=== PATIENT | female | born 1985 | race Caucasian/White ===

== ENCOUNTER 2020-12-30 07:01 | Emergency (ER) | payer OTHER ==
[~2020-12-30] VITALS: Ht 157.5 cm; Wt 61.2 kg
--- NOTE | 2020-12-30 07:15 | NUR ---
Dr. Bennett at bedside for MSE.
[2020-12-30] MEDS ORDERED: diphenhydrAMINE 50 MG/1 ML VIAL IV ONE (07:30)
[2020-12-30] MEDS ORDERED: ALBUTEROL SULFATE 2.5 MG/3 ML NEBU NEB ONE (07:30)
[2020-12-30] MEDS ORDERED: FAMOTIDINE. 20 MG/2 ML VIAL IV ONE ×2 (07:30→07:37)
[2020-12-30] MEDS ORDERED: methylPREDNISolone SOD SUCC 125 MG/2 ML VIAL IV ONE (07:30)
[2020-12-30] MEDS ORDERED: methylPREDNISolone SOD SUCC 125 MG/2 ML VIAL ONE (07:36)
[2020-12-30] MEDS ORDERED: diphenhydrAMINE 50 MG/1 ML VIAL ONE (07:36)
[2020-12-30] MEDS ORDERED: ALBUTEROL SULFATE 2.5 MG/3 ML NEBU ONE (07:39)
[2020-12-30] MEDS ORDERED: PRED50TA PO (07:48)
[2020-12-30] MEDS ORDERED: EPIN0.3P3 IJ (07:48)
--- NOTE | 2020-12-30 08:08 | NUR ---
HHN TX complete, pt resting with NAD noted.
--- NOTE | 2020-12-30 08:26 | NUR ---
received patient in shift report, no signs of acute distress, patient noted resting in bed on cellphone
--- NOTE | 2020-12-30 09:40 | NUR ---
Patient given discharge paperwork but states she wishes to rest a little bit more
--- NOTE | 2020-12-30 09:46 | NUR ---
Patient discharged to home in stable condition. Rx given, no signs of acute distress noted. Written and verbal after care instructions given. Patient verbalizes understanding of instructions. Stressed follow up or return to ER for worsening s/s.
[2020-12-30 09:53] VITALS: BP 124/73
== END 2020-12-30 09:45 | disposition home or self-care (01) ==
LOC: ER 07:02
DX: R42 Dizziness and giddiness (principal); T36.0X5A Adverse effect of penicillins, initial encounter; Y92.89 Other specified places as the place of occurrence of the external cause; F17.210 Nicotine dependence, cigarettes, uncomplicated; Z88.1 Allergy status to other antibiotic agents; J45.909 Unspecified asthma, uncomplicated; K02.9 Dental caries, unspecified; F15.11 Other stimulant abuse, in remission; K04.7 Periapical abscess without sinus
CPT/HCPCS: 94640; 96374; 96375; 99284; J1200; J2930; J3490; A4663

== ENCOUNTER 2020-12-30 13:08 | Emergency (ER) | payer OTHER ==
[~2020-12-30 13:08] MED LIST: EPIN0.3P3 IJ; PRED50TA PO
--- NOTE | 2020-12-30 13:40 | NUR ---
Attempted to triage pt. Pt was not found in ER waiting room or outside ER.
== END 2020-12-30 13:56 | disposition left against medical advice (07) ==
LOC: ER 13:08
DX: Z53.21 Procedure and treatment not carried out due to patient leaving prior to being seen by health care provider (principal)

== ENCOUNTER 2021-01-11 22:10 | Emergency (ER) | payer OTHER ==
[~2021-01-11] VITALS: Ht 157.5 cm; Wt 61.2 kg
--- NOTE | 2021-01-11 22:35 | NUR ---
Pt came in to ER with c/o SOB, A/O x4, no labored breathing. No audible wheezing. Steady gait.
--- NOTE | 2021-01-11 22:36 | NUR ---
Dr. Hollis at bedside, MSE in progress.
[2021-01-11] MEDS ORDERED: LORAZEPAM 0.5 MG TABLET PO ONE (22:45)
[2021-01-11] MEDS ORDERED: ASPIRIN 81 MG TAB.CHEW PO ONE (22:45)
[2021-01-11 23:00] LABS: HEMATOCRIT 40.5 % (31.2-41.9); MEAN CORPUSCULAR HEMOGLOBIN 30.8 uug (24.7-32.8); MEAN CORPUSCULAR VOLUME 93.1 fL (75.5-95.3); PLATELET COUNT (AUTO) 225 K/uL (179-408)
[2021-01-11] MEDS ORDERED: ALPRAZOLAM 0.25 MG TABLET PO ONE (23:00)
[2021-01-11 23:07] LABS: CREATININE 0.7 mg/dL (0.6-1.3); POTASSIUM 3.6 mmol/L (3.5-5.1)
[2021-01-11] MEDS ORDERED: ASPIRIN 81 MG TAB.CHEW ONE (23:13)
[2021-01-11] MEDS ORDERED: ALPRAZOLAM 0.5 MG TABLET ONE (23:13)
[2021-01-11 23:19] LABS: BILIRUBIN,DIRECT 0.1 mg/dL (0.0-0.2); BILIRUBIN,TOTAL 0.1 mg/dL (0.2-1.0); TOTAL PROTEIN, SERUM 7.8 g/dL (6.4-8.2)
[2021-01-11] MEDS ORDERED: ALPR0.5T PO (23:51)
--- NOTE | 2021-01-11 23:56 | NUR ---
Patient discharged to home in stable condition. A/O x4, no SOB or labored breathing. Afebrile. No c/o pain/discomfort. Written and verbal after care instructions given. Patient verbalizes understanding of instructions. Stressed follow up or return to ER for worsening s/s. Steady gait.
[2021-01-11 23:57] VITALS: BP 138/85
== END 2021-01-11 23:56 | disposition home or self-care (01) ==
LOC: ER 22:11
DX: R07.9 Chest pain, unspecified (principal); F17.210 Nicotine dependence, cigarettes, uncomplicated; J45.909 Unspecified asthma, uncomplicated; F41.9 Anxiety disorder, unspecified; Z79.899 Other long term (current) drug therapy
CPT/HCPCS: 36415; 70030-TC; 71045; 85025; 93005; A4663

== ENCOUNTER 2021-11-05 01:33 | Emergency (ER) | payer OTHER ==
[~2021-11-05] VITALS: Ht 152.4 cm; Wt 63.5 kg
[~2021-11-05 01:33] MED LIST changes: +ALPR0.5T PO
[2021-11-05] MEDS ORDERED: MUPI22OI2 TP (02:49)
[2021-11-05] MEDS ORDERED: SULF1TAB48 PO (02:50)
[2021-11-05] MEDS ORDERED: NEOMY/BACITRA/POLYMYXIN B OINT UD PACKET TP ONE (02:52)
[2021-11-05] MEDS ORDERED: SULFAMETH/TRIMETH 800/160 MG TABLET ONE (02:53)
[2021-11-05] MEDS: SULFAMETH/TRIMETH 800/160 MG TABLET PO ONE (02:55)
[2021-11-05] MEDS: NEOMY/BACITRA/POLYMYXIN B OINT UD PACKET TP ONE (02:56)
[2021-11-05] MEDS: MUPIROCIN 2% OINT 22 GM TUBE TP ONE (02:57)
--- NOTE | 2021-11-05 03:23 | NUR ---
Patient verba of needs and responds appropriately. Plan of care discussed and discharge instruction signed.
[2021-11-05 03:26] VITALS: BP 123/81
[2021-11-05] MEDS ORDERED: ALBU8.5H8 INH (03:43)
== END 2021-11-05 03:27 | disposition home or self-care (01) ==
LOC: ER 01:38
DX: J20.8 Acute bronchitis due to other specified organisms (principal); Z20.822 Contact with and (suspected) exposure to COVID-19; Z87.891 Personal history of nicotine dependence; Z88.1 Allergy status to other antibiotic agents; Z88.0 Allergy status to penicillin; J45.909 Unspecified asthma, uncomplicated; L03.90 Cellulitis, unspecified
CPT/HCPCS: A4663

== ENCOUNTER 2022-02-03 19:47 | Emergency (ER) | payer OTHER ==
[~2022-02-03] VITALS: Ht 152.4 cm; Wt 65.8 kg
[~2022-02-03 19:47] MED LIST changes: +ALBU8.5H8 INH; +MUPI22OI2 TP; +SULF1TAB48 PO
--- NOTE | 2022-02-03 20:07 | NUR ---
pt in room 3 states she tested positive for covid 2 days ago, pt presents to the er today for cough congestion runny nose. Dr. Seay in for MSE.
[2022-02-03] MEDS ORDERED: LORA0.5T48 PO (20:32)
--- NOTE | 2022-02-03 20:37 | NUR ---
Patient discharged to home in stable condition. Written and verbal after care instructions given. Patient verbalizes understanding of instructions. Stressed follow up or return to ER for worsening s/s.
[2022-02-03] MEDS ORDERED: IBUP-1955 PO ×2 (20:57→22:21)
[2022-02-03] MEDS ORDERED: LORA-258 PO (22:21)
== END 2022-02-03 20:37 | disposition home or self-care (01) ==
LOC: ER 19:47
DX: U07.1 COVID-19 (principal); F41.9 Anxiety disorder, unspecified; J45.909 Unspecified asthma, uncomplicated; Z28.310 Unvaccinated for COVID-19; Z87.891 Personal history of nicotine dependence; Z88.1 Allergy status to other antibiotic agents; Z88.0 Allergy status to penicillin
CPT/HCPCS: 71045; A4663

== ENCOUNTER 2022-03-17 02:56 | Emergency (ER) | payer OTHER ==
[~2022-03-17] VITALS: Ht 152.4 cm; Wt 63.5 kg
[~2022-03-17 02:56] MED LIST changes: +IBUP-1955 PO; +LORA-258 PO; +LORA0.5T48 PO
--- NOTE | 2022-03-17 03:20 | NUR ---
Dr. Simms at bedside for MSE.
[2022-03-17] MEDS ORDERED: SULF1TAB48 PO (03:27)
[2022-03-17] MEDS ORDERED: MUPI22OI2 TP (03:27)
[2022-03-17] MEDS ORDERED: SULFAMETH/TRIMETH 800/160 MG TABLET PO ONE (03:30)
[2022-03-17] MEDS ORDERED: SULFAMETH/TRIMETH 800/160 MG TABLET ONE (03:32)
[2022-03-17 03:35] VITALS: BP 127/91
--- NOTE | 2022-03-17 03:35 | NUR ---
Patient discharged to home in stable condition. Written and verbal after care instructions given. Patient verbalizes understanding of instructions. Stressed follow up or return to ER for worsening s/s. Patient out of ER with steady gait, no acute signs of distress, VSS, all belongings taken.
== END 2022-03-17 03:35 | disposition home or self-care (01) ==
LOC: ER 02:58
DX: L97.921 Non-pressure chronic ulcer of unspecified part of left lower leg limited to breakdown of skin (principal); L08.9 Local infection of the skin and subcutaneous tissue, unspecified; L98.499 Non-pressure chronic ulcer of skin of other sites with unspecified severity; E03.9 Hypothyroidism, unspecified; J45.909 Unspecified asthma, uncomplicated; Z88.0 Allergy status to penicillin; F15.10 Other stimulant abuse, uncomplicated; F11.10 Opioid abuse, uncomplicated; Z88.1 Allergy status to other antibiotic agents; F41.9 Anxiety disorder, unspecified; Z79.899 Other long term (current) drug therapy; R25.2 Cramp and spasm
CPT/HCPCS: A4663

== ENCOUNTER 2022-10-27 14:31 | Emergency (ER) | payer OTHER ==
[~2022-10-27] VITALS: Ht 152.4 cm; Wt 68.0 kg
[2022-10-27] MEDS ORDERED: METH-817 PO (14:49)
[2022-10-27] MEDS ORDERED: LORA10CA PO (14:49)
[2022-10-27] MEDS ORDERED: LAMO150T2 PO (14:49)
[2022-10-27 15:19] LABS: HEMATOCRIT 37.3 % (31.2-41.9); MEAN CORPUSCULAR HEMOGLOBIN 32.1 uug (24.7-32.8); MEAN CORPUSCULAR VOLUME 92.9 fL (75.5-95.3); PLATELET COUNT (AUTO) 244 K/uL (179-408)
[2022-10-27 15:25] LABS: *BILIRUBIN,URIN NEGATIVE (NEGATIVE); *BLOOD, URINE 3+ (NEGATIVE); *CLARITY,URINE SLIGHTLY CLOUDY (CLEAR); *KETONES,URINE NEGATIVE (NEGATIVE); *UROBILINOGEN,URINE 0.2 E.U./dl (NORMAL); LEUKOCYTE ESTERASE ,URINE NEGATIVE (NEGATIVE); NITRITE, URINE NEGATIVE (NEGATIVE); UGLUCOSE NEGATIVE (NEGATIVE)
[2022-10-27 15:26] LABS: *COLOR,URINE AMBER (YELLOW)
[2022-10-27 15:33] LABS: *URINE HCG, QUAL NEGATIVE (NEGATIVE)
[2022-10-27 15:36] LABS: CARBON DIOXIDE 28 mmol/L (21-32); CHLORIDE 104 mmol/L (98-107); CREATININE 0.8 mg/dL (0.6-1.3); GLUCOSE 99 mg/dL (74-106); POTASSIUM 3.9 mmol/L (3.5-5.1); UREA NITROGEN, BLOOD 15 mg/dL (7-18)
[2022-10-27 15:43] LABS: ALANINE AMINOTRANSFERASE 27 U/L (14-59); ALKALINE PHOSPHATASE 61 U/L (50-136); ASPARTATE AMINOTRANSFERASE 18 U/L (15-37); BILIRUBIN,DIRECT < 0.1 mg/dL (0.0-0.2); BILIRUBIN,TOTAL 0.1 mg/dL (0.2-1.0); TOTAL PROTEIN, SERUM 7.8 g/dL (6.4-8.2)
[2022-10-27 15:59] LABS: BACTERIA,URINE FEW /HPF (NONE SEEN); RBC,URINE 50-80 /HPF (0-3); SQUAMOUS EPITHELIAL CELL,UR FEW /HPF (NONE SEEN); WBC,URINE 0-3 /HPF (0-3)
== END 2022-10-27 17:01 | disposition home or self-care (01) ==
LOC: ER 14:55
DX: N93.9 Abnormal uterine and vaginal bleeding, unspecified (principal); D25.9 Leiomyoma of uterus, unspecified; F41.9 Anxiety disorder, unspecified; E03.9 Hypothyroidism, unspecified; R42 Dizziness and giddiness; J45.909 Unspecified asthma, uncomplicated; Z88.0 Allergy status to penicillin; Z88.1 Allergy status to other antibiotic agents; Z79.1 Long term (current) use of non-steroidal anti-inflammatories (NSAID); Z79.899 Other long term (current) drug therapy
CPT/HCPCS: 36415; 76856; 84443; 84484; 84703; 85025; 85730; 93005; A4663

== ENCOUNTER 2022-12-23 21:57 | Emergency (ER) | payer OTHER ==
[~2022-12-23] VITALS: Ht 152.4 cm; Wt 70.3 kg
[~2022-12-23 21:57] MED LIST changes: -ALPR0.5T PO; +LAMO150T2 PO; -LORA-258 PO; -LORA0.5T48 PO; +LORA10CA PO; +METH-817 PO; -MUPI22OI2 TP; -PRED50TA PO; -SULF1TAB48 PO
--- NOTE | 2022-12-23 22:15 | NUR ---
Dr Hollis into eval patient.
[2022-12-23] MEDS ORDERED: predniSONE 20 MG TABLET PO ONE (23:15)
[2022-12-23] MEDS ORDERED: LIDOCAINE VISCUS 2% 15 ML UDC MM ONE (23:15)
[2022-12-23] MEDS ORDERED: DICYCLOMINE HCL LIQ 10 MG/5 ML UDC PO ONE (23:15)
[2022-12-23] MEDS ORDERED: MAG HYDROX/AL HYDROX/SIMETH 30 ML LIQUID UDC PO ONE (23:15)
[2022-12-23] MEDS ORDERED: DICYCLOMINE HCL LIQ 10 MG/5 ML UDC ONE (23:16)
[2022-12-23] MEDS ORDERED: MAG HYDROX/AL HYDROX/SIMETH 30 ML LIQUID UDC ONE (23:17)
[2022-12-23] MEDS ORDERED: predniSONE 20 MG TABLET ONE (23:17)
[2022-12-23] MEDS ORDERED: LIDOCAINE VISCUS 2% 15 ML UDC ONE (23:17)
[2022-12-23] MEDS ORDERED: ALBU8.5H8 IH (23:25)
[2022-12-23] MEDS ORDERED: PRED20TA PO (23:25)
[2022-12-23] MEDS ORDERED: PANT20TA2 PO (23:25)
[2022-12-23] MEDS ORDERED: PANTOPRAZOLE SODIUM 40 MG TABLET.DR PO ONE ×2 (23:27→23:30)
[2022-12-23 23:33] VITALS: BP 112/77
== END 2022-12-23 23:33 | disposition home or self-care (01) ==
LOC: ER 21:57
DX: J20.8 Acute bronchitis due to other specified organisms (principal); B97.89 Other viral agents as the cause of diseases classified elsewhere; J45.909 Unspecified asthma, uncomplicated; R12 Heartburn; E03.9 Hypothyroidism, unspecified; Z88.0 Allergy status to penicillin; Z88.1 Allergy status to other antibiotic agents; Z79.1 Long term (current) use of non-steroidal anti-inflammatories (NSAID); Z79.899 Other long term (current) drug therapy; Z20.822 Contact with and (suspected) exposure to COVID-19
CPT/HCPCS: 99285; 71045; 87426; 87804 ×2; 93005; J7512; A4663

== ENCOUNTER 2022-12-28 22:42 | Emergency (ER) | payer OTHER ==
[~2022-12-28] VITALS: Ht 152.4 cm; Wt 68.0 kg
[~2022-12-28 22:42] MED LIST changes: +ALBU8.5H8 IH; +PANT20TA2 PO; +PRED20TA PO
--- NOTE | 2022-12-28 23:05 | NUR ---
Dr. Hollis evaluated patient at bedside. MSE in progress.
[2022-12-28] MEDS ORDERED: BUPR1FIL3 SL ×3 (23:11→23:19)
[2022-12-28] MEDS ORDERED: DIAZEPAM 2 MG TABLET PO ONE (23:15)
[2022-12-28] MEDS ORDERED: BUPRENORPHINE HCL 2 MG TAB.SUBL SL ONE ×3 (23:15→23:30)
[2022-12-28] MEDS ORDERED: DIAZEPAM 2 MG TABLET ONE (23:16)
--- NOTE | 2022-12-28 23:37 | NUR ---
Patient resting comfortably in bed, no signs of distress noted.
--- NOTE | 2022-12-29 00:12 | NUR ---
Patient resting comfortably in bed, no signs of distress noted. Patient's partner at bedside.
--- NOTE | 2022-12-29 00:23 | NUR ---
Patient ambulated to the bathroom indepedently. Steady gait, no signs of distress noted.
[2022-12-29 00:25] VITALS: BP 115/65
== END 2022-12-29 00:27 | disposition home or self-care (01) ==
LOC: ER 22:42
DX: F11.23 Opioid dependence with withdrawal (principal); F41.9 Anxiety disorder, unspecified; J45.909 Unspecified asthma, uncomplicated; E03.9 Hypothyroidism, unspecified; Z88.0 Allergy status to penicillin; Z88.1 Allergy status to other antibiotic agents; Z79.1 Long term (current) use of non-steroidal anti-inflammatories (NSAID); Z79.899 Other long term (current) drug therapy
CPT/HCPCS: A4663

== ENCOUNTER 2023-01-04 15:34 | Emergency (ER) | payer OTHER ==
[~2023-01-04] VITALS: Ht 152.4 cm; Wt 66.7 kg
[~2023-01-04 15:34] MED LIST changes: +BUPR1FIL3 SL
--- NOTE | 2023-01-04 16:07 | NUR ---
1st contact with patient: AOx4, respiration:easy, unlabored, even and symmetrical, moving all extremities, skin warm and dry, for possible transfer to outside hospital for her speech related issue, opiate abuse-related issues and anxiety issues. Patient verbally reported, " I have shakiness and possible stroke." Patient was seen ambulating to the bathroom with steady gait to provide urine specimen.
[2023-01-04 16:16] LABS: HEMATOCRIT 35.8 % (31.2-41.9); MEAN CORPUSCULAR HEMOGLOBIN 31.4 uug (24.7-32.8); MEAN CORPUSCULAR VOLUME 91.9 fL (75.5-95.3); PLATELET COUNT (AUTO) 212 K/uL (179-408)
--- NOTE | 2023-01-04 16:26 | NUR ---
"Plan to admit" per Dr Luu. ER registration/admitting staff Mulu was notified.
[2023-01-04 16:30] LABS: ALANINE AMINOTRANSFERASE 22 U/L (14-59); ALKALINE PHOSPHATASE 59 U/L (50-136); ASPARTATE AMINOTRANSFERASE 6 U/L (15-37); BILIRUBIN,TOTAL 0.3 mg/dL (0.2-1.0); CARBON DIOXIDE 28 mmol/L (21-32); CHLORIDE 104 mmol/L (98-107); CREATININE 0.7 mg/dL (0.6-1.3); GLUCOSE 110 mg/dL (74-106); POTASSIUM 3.6 mmol/L (3.5-5.1); TOTAL PROTEIN, SERUM 7.2 g/dL (6.4-8.2); UREA NITROGEN, BLOOD 11 mg/dL (7-18)
[2023-01-04 16:33] LABS: *URINE HCG, QUAL NEG (NEGATIVE)
[2023-01-04 16:39] LABS: *AMPHETAMINE, URINE NEGATIVE (NEGATIVE); *CANNABINOID, URINE NEGATIVE (NEGATIVE); *COCCAINE, URINE NEGATIVE (NEGATIVE); *PHENCYCLIDINE SCREEN,URINE NEGATIVE (NEGATIVE)
--- NOTE | 2023-01-04 17:28 | NUR ---
Patient is resting comfortably on gurney with eyes closed, no body tremors or "shakiness" seen, for CT scan at this time.
--- NOTE | 2023-01-04 17:52 | NUR ---
CT scan is done, NAD, no acute change in condition, pending results at this time.
--- NOTE | 2023-01-04 18:35 | NUR ---
Patient is intermittently tearful with her male visitor at bedside, pending results and disposition.
--- NOTE | 2023-01-04 18:56 | NUR ---
Patient is heard speaking to her visitor with clearer speech but at times, still mildly tearful.
[2023-01-04 19:07] LABS: MAGNESIUM 1.7 mg/dL (1.8-2.4)
--- NOTE | 2023-01-04 19:40 | NUR ---
Magali donnelly in EDM - 01/04/23 at 1943 by ZOILA Patient is still for insurance authorization for transfer to a decapitated outside hospital ([facility]) versus admission in our hospital.No acute change in patient's condition seen, nursing SBAR given to REHAN Hayden.
--- NOTE | 2023-01-04 19:43 | NUR ---
Patient is still waiting for insurance authorization for: possible transfer to a decapitated outside hospital (e.g. [facility]) versus admission in our hospital.No acute change in patient's condition seen, nursing SBAR given to REHAN Hayden.
--- NOTE | 2023-01-04 20:12 | NUR ---
Dr. Simms speaking with Dr. Humphreys.
[2023-01-04] MEDS ORDERED: CYANOCOBALAMIN 1000 MCG/ML VIAL IM ONE (20:15)
[2023-01-04] MEDS ORDERED: CYANOCOBALAMIN 1000 MCG/ML VIAL ONE (20:40)
[2023-01-04] MEDS ORDERED: MECO10006 IM (21:05)
[2023-01-04] MEDS ORDERED: SYRI-29 MC (21:05)
--- NOTE | 2023-01-04 21:05 | NUR ---
Pt care continue as she stable and been discharged to home with all discharged instructions given with family at bedside .
[2023-01-04 21:08] VITALS: BP 132/72
== END 2023-01-04 21:29 | disposition home or self-care (01) ==
LOC: ER 15:34
DX: R47.01 Aphasia (principal); F41.9 Anxiety disorder, unspecified; F11.10 Opioid abuse, uncomplicated; J45.909 Unspecified asthma, uncomplicated; E03.9 Hypothyroidism, unspecified; F15.10 Other stimulant abuse, uncomplicated; Z88.0 Allergy status to penicillin; Z88.1 Allergy status to other antibiotic agents; Z79.899 Other long term (current) drug therapy; Z79.1 Long term (current) use of non-steroidal anti-inflammatories (NSAID); Z20.822 Contact with and (suspected) exposure to COVID-19
CPT/HCPCS: 80053; 82607; 84703; 83735; 85025; 87426; 36415; 70450; 99285; 96372; 80320; 80307; J3420; A4663; G0480

== ENCOUNTER 2023-01-29 05:32 | Emergency (ER) | payer OTHER ==
[~2023-01-29] VITALS: Ht 149.9 cm; Wt 62.6 kg
[~2023-01-29 05:32] MED LIST changes: -ALBU8.5H8 IH; -ALBU8.5H8 INH; +ALPR0.5T PO; -IBUP-1955 PO; -LAMO150T2 PO; +MECO10006 IM; -METH-817 PO; +NITR100C11 PO; -PRED20TA PO; +SYRI-29 MC
--- NOTE | 2023-01-29 06:10 | NUR ---
Pt. escorted to Rm2[facility] by triage nurse. AAOx4. States she is here only for medication refill. Denies any pain/discomfort. Awaiting eval from .
[2023-01-29] MEDS ORDERED: BUPR1FIL3 SL (06:34)
--- NOTE | 2023-01-29 06:38 | NUR ---
Pt. seen by MD and electronic prescription sent to pharmacy. Pt. discharged with no further requests. Will f/u with doctor/clinic at upcoming appointment.
[2023-01-29 06:46] VITALS: BP 95/70; TEMP 98.7; O2SAT 97
== END 2023-01-29 06:40 | disposition home or self-care (01) ==
LOC: ER 05:35
DX: F11.23 Opioid dependence with withdrawal (principal); E03.9 Hypothyroidism, unspecified; Z76.0 Encounter for issue of repeat prescription; Z88.0 Allergy status to penicillin; Z88.1 Allergy status to other antibiotic agents; Z79.899 Other long term (current) drug therapy
CPT/HCPCS: A4663

== ENCOUNTER 2023-08-16 00:40 | Emergency (ER) | payer OTHER ==
[~2023-08-16] VITALS: Ht 149.9 cm; Wt 63.5 kg
[2023-08-16] MEDS ORDERED: BUPR1FIL3 SL ×2 (01:19→01:22)
[2023-08-16] MEDS ORDERED: FLUT1DIS28 INH (01:19)
[2023-08-16 01:31] VITALS: BP 116/85; TEMP 98.5; O2SAT 99
== END 2023-08-16 01:32 | disposition home or self-care (01) ==
LOC: ER 00:48
DX: J45.909 Unspecified asthma, uncomplicated (principal); Z76.0 Encounter for issue of repeat prescription; F11.20 Opioid dependence, uncomplicated; E03.9 Hypothyroidism, unspecified; Z60.2 Problems related to living alone; Z79.899 Other long term (current) drug therapy; Z88.0 Allergy status to penicillin; Z88.1 Allergy status to other antibiotic agents
CPT/HCPCS: A4606; A4663

== ENCOUNTER 2023-09-21 20:36 | Emergency (ER) | payer OTHER ==
[~2023-09-21] VITALS: Ht 149.9 cm; Wt 61.2 kg
[~2023-09-21 20:36] MED LIST changes: +FLUT1DIS28 INH
[2023-09-21 21:33] LABS: BASOPHILS % (AUTO) 0.5 % (0.0-2.0); EOSINOPHILS # (AUTO) 0.1 K/uL (0.0-0.7); EOSINOPHILS % (AUTO) 0.7 % (0.0-7.0); HEMATOCRIT 39.6 % (31.2-41.9); LYMPHOCYTES # (AUTO) 2.1 K/uL (0.8-4.8); LYMPHOCYTES % (AUTO) 28.1 % (20.5-51.5); MEAN CORPUSCULAR HEMOGLOBIN 32.4 uug (24.7-32.8); MEAN CORPUSCULAR HGB CONC 36 g/dL (32.3-35.6); MEAN CORPUSCULAR VOLUME 91.5 fL (75.5-95.3); MONOCYTES # (AUTO) 0.4 K/uL (0.1-1.30); MONOCYTES % (AUTO) 5.5 % (0.0-11.0); NEUTROPHILS # (AUTO) 4.8 K/uL (1.8-8.9); NEUTROPHILS % (AUTO) 65.2 % (38.5-71.5); PLATELET COUNT (AUTO) 211 K/uL (179-408); RED BLOOD CELL COUNT(AUTO) 4.33 MIL/uL (3.63-4.92); RED CELL DISTRIBUTION WIDTH 13.1 % (12.3-17.7); WHITE BLOOD COUNT (AUTO) 7.3 K/uL (3.8-11.8)
[2023-09-21 21:34] LABS: DIFFERENTIAL COMMENT 1
[2023-09-21 21:42] LABS: CALCIUM 9.2 mg/dL (8.5-10.1); CARBON DIOXIDE 28 mmol/L (21-32); CHLORIDE 103 mmol/L (98-107); CREATININE 0.7 mg/dL (0.6-1.3); GLUCOSE 94 mg/dL (74-106); POTASSIUM 3.4 mmol/L (3.5-5.1); SODIUM SERUM 139 mmol/L (136-145); UREA NITROGEN, BLOOD 11 mg/dL (7-18)
[2023-09-21 21:55] LABS: ALANINE AMINOTRANSFERASE 16 U/L (14-59); ALBUMIN 3.7 g/dL (3.4-5.0); ALKALINE PHOSPHATASE 61 U/L (50-136); ASPARTATE AMINOTRANSFERASE 8 U/L (15-37); BILIRUBIN,TOTAL 0.2 mg/dL (0.2-1.0); NT-PRO BNP 44 pg/mL (0-125); TOTAL PROTEIN, SERUM 7.8 g/dL (6.4-8.2)
[2023-09-21] MEDS ORDERED: ALPRAZOLAM 0.5 MG TABLET ONE (21:55)
[2023-09-21] MEDS ORDERED: ASPIRIN 81 MG TAB.CHEW ONE (21:55)
[2023-09-21 21:56] LABS: BILIRUBIN,DIRECT < 0.1 mg/dL (0.0-0.2)
[2023-09-21] MEDS: ALPRAZOLAM 0.25 MG TABLET PO ONE (21:59)
[2023-09-21] MEDS: ASPIRIN 81 MG TAB.CHEW PO ONE (21:59)
[2023-09-21] MEDS ORDERED: ALPR0.25 PO (22:28)
[2023-09-21 23:30] VITALS: BP 109/68; TEMP 98.2; O2SAT 99
== END 2023-09-21 22:58 | disposition home or self-care (01) ==
LOC: ER 20:37
DX: R07.89 Other chest pain (principal); F41.9 Anxiety disorder, unspecified; J45.909 Unspecified asthma, uncomplicated; E03.9 Hypothyroidism, unspecified; F17.210 Nicotine dependence, cigarettes, uncomplicated; Z98.890 Other specified postprocedural states; Z79.899 Other long term (current) drug therapy; Z60.2 Problems related to living alone; Z88.0 Allergy status to penicillin; Z88.5 Allergy status to narcotic agent
CPT/HCPCS: 36415; 71045; 84484; 85025; 93005; A4606; A4663

== ENCOUNTER 2023-09-24 01:36 | Emergency (ER) | payer OTHER ==
[~2023-09-24] VITALS: Ht 149.9 cm; Wt 61.2 kg
[~2023-09-24 01:36] MED LIST changes: +ALPR0.25 PO
[2023-09-24] MEDS ORDERED: BUPR1TAB45 SL (02:33)
[2023-09-24 02:49] VITALS: BP 120/78; TEMP 98; O2SAT 98
[2023-09-28] MEDS ORDERED: DOXY100C5 PO (17:24)
[2023-09-28] MEDS ORDERED: METR500T PO (17:24)
[2023-09-28] MEDS ORDERED: FLUC200T8 PO (18:38)
[2023-09-28] MEDS ORDERED: NITR100C6 PO (19:29)
== END 2023-09-24 02:50 | disposition home or self-care (01) ==
LOC: ER 01:39
DX: F11.20 Opioid dependence, uncomplicated (principal); Z76.0 Encounter for issue of repeat prescription; J45.909 Unspecified asthma, uncomplicated; E03.9 Hypothyroidism, unspecified; F17.210 Nicotine dependence, cigarettes, uncomplicated; Z98.890 Other specified postprocedural states; Z79.899 Other long term (current) drug therapy; Z88.0 Allergy status to penicillin; Z88.1 Allergy status to other antibiotic agents
CPT/HCPCS: A4606; A4663

== ENCOUNTER 2023-11-27 20:39 | Emergency (ER) | payer OTHER ==
[~2023-11-27] VITALS: Ht 149.9 cm; Wt 63.2 kg
[~2023-11-27 20:39] MED LIST changes: -ALPR0.5T PO; -BUPR1FIL3 SL; +BUPR1TAB45 SL; +DOXY100C5 PO; +FLUC200T8 PO; -LORA10CA PO; -MECO10006 IM; +METR500T PO; -NITR100C11 PO; +NITR100C6 PO; -PANT20TA2 PO; -SYRI-29 MC
[2023-11-27 20:43] VITALS: O2SAT 99
[2023-11-27 21:28] LABS: BASOPHILS % (AUTO) 0.3 % (0.0-2.0); EOSINOPHILS # (AUTO) 0.2 K/uL (0.0-0.7); EOSINOPHILS % (AUTO) 3.3 % (0.0-7.0); HEMATOCRIT 39.1 % (31.2-41.9); HEMOGLOBIN 13.7 g/dL (10.9-14.3); LYMPHOCYTES # (AUTO) 1.3 K/uL (0.8-4.8); LYMPHOCYTES % (AUTO) 26.5 % (20.5-51.5); MEAN CORPUSCULAR HEMOGLOBIN 32.1 uug (24.7-32.8); MEAN CORPUSCULAR HGB CONC 35 g/dL (32.3-35.6); MEAN CORPUSCULAR VOLUME 91.5 fL (75.5-95.3); MONOCYTES # (AUTO) 0.2 K/uL (0.1-1.30); MONOCYTES % (AUTO) 4.6 % (0.0-11.0); NEUTROPHILS # (AUTO) 3.3 K/uL (1.8-8.9); NEUTROPHILS % (AUTO) 65.3 % (38.5-71.5); PLATELET COUNT (AUTO) 256 K/uL (179-408); RED BLOOD CELL COUNT(AUTO) 4.28 MIL/uL (3.63-4.92); RED CELL DISTRIBUTION WIDTH 12.6 % (12.3-17.7)
[2023-11-27 21:44] LABS: DIFFERENTIAL COMMENT 1
[2023-11-27] MEDS ORDERED: LORAZEPAM 1 MG TABLET ONE (21:46)
[2023-11-27 21:50] LABS: CARBON DIOXIDE 31 mmol/L (21-32); CHLORIDE 105 mmol/L (98-107); CREATININE 0.7 mg/dL (0.6-1.3); GLUCOSE 106 mg/dL (74-106); POTASSIUM 3.9 mmol/L (3.5-5.1); SODIUM SERUM 143 mmol/L (136-145); UREA NITROGEN, BLOOD 12 mg/dL (7-18)
[2023-11-27] MEDS: LORAZEPAM 0.5 MG TABLET PO ONE (21:50)
[2023-11-27 21:53] LABS: ETHANOL < 3 MG/DL (0-10)
[2023-11-27 21:55] LABS: *AMPHETAMINE, URINE POSITIVE (NEGATIVE); *BARBITURATE, URINE NEGATIVE (NEGATIVE); *BENZODIAZEPINE, URINE POSITIVE (NEGATIVE); *CANNABINOID, URINE NEGATIVE (NEGATIVE); *COCCAINE, URINE NEGATIVE (NEGATIVE); *OPIATE, URINE NEGATIVE (NEGATIVE); *PHENCYCLIDINE SCREEN,URINE NEGATIVE (NEGATIVE); FENTANYL, URINE NEGATIVE (NEGATIVE)
[2023-11-27 21:56] LABS: ALANINE AMINOTRANSFERASE 21 U/L (14-59); ALBUMIN 3.6 g/dL (3.4-5.0); ALKALINE PHOSPHATASE 57 U/L (50-136); ASPARTATE AMINOTRANSFERASE 8 U/L (15-37); BILIRUBIN,TOTAL 0.2 mg/dL (0.2-1.0); TOTAL PROTEIN, SERUM 7.6 g/dL (6.4-8.2)
[2023-11-27 22:12] LABS: BILIRUBIN,DIRECT < 0.1 mg/dL (0.0-0.2)
[2023-11-27] MEDS ORDERED: DIAZEPAM 2 MG TABLET ONE (22:15)
[2023-11-27] MEDS: DIAZEPAM 2 MG TABLET PO ONE (22:24)
== END 2023-11-27 23:37 | disposition home or self-care (01) ==
LOC: ER 20:44
DX: F24 Shared psychotic disorder (principal); J45.909 Unspecified asthma, uncomplicated; E03.9 Hypothyroidism, unspecified; F17.200 Nicotine dependence, unspecified, uncomplicated; Z79.899 Other long term (current) drug therapy; Z88.0 Allergy status to penicillin; Z88.1 Allergy status to other antibiotic agents
CPT/HCPCS: 36415; 70450; 85025; A4606; A4663; G0480

== ENCOUNTER 2023-12-27 02:01 | Emergency (ER) | payer OTHER ==
[~2023-12-27] VITALS: Ht 149.9 cm; Wt 60.3 kg
[2023-12-27 02:10] VITALS: O2SAT 99
[2023-12-27] MEDS ORDERED: DIAZEPAM 5 MG TABLET ONE (03:51)
[2023-12-27] MEDS ORDERED: BUPR1TAB45 SL (03:52)
[2023-12-27] MEDS: DIAZEPAM 2 MG TABLET PO ONE (03:53)
[2023-12-27 04:03] VITALS: BP 102/68
[2023-12-28] MEDS ORDERED: AZIT250T PO (12:33)
== END 2023-12-27 04:04 | disposition home or self-care (01) ==
LOC: ER 02:04
DX: F41.9 Anxiety disorder, unspecified (principal); G25.71 Drug induced akathisia; Z76.0 Encounter for issue of repeat prescription; J45.909 Unspecified asthma, uncomplicated; E03.9 Hypothyroidism, unspecified; F17.200 Nicotine dependence, unspecified, uncomplicated; Z79.899 Other long term (current) drug therapy; Z60.2 Problems related to living alone; Z88.0 Allergy status to penicillin
CPT/HCPCS: A4606; A4663

== ENCOUNTER 2023-12-28 12:16 | Emergency (ER) | payer OTHER ==
[~2023-12-28] VITALS: Ht 152.4 cm; Wt 60.3 kg
[2023-12-28] MEDS ORDERED: AZIT250T PO (12:33)
[2023-12-28 13:00] VITALS: BP 129/81; TEMP 98.3; O2SAT 97
== END 2023-12-28 14:00 | disposition home or self-care (01) ==
LOC: ER 12:17
DX: J06.9 Acute upper respiratory infection, unspecified (principal); F17.210 Nicotine dependence, cigarettes, uncomplicated; J45.909 Unspecified asthma, uncomplicated; E03.9 Hypothyroidism, unspecified; Z79.899 Other long term (current) drug therapy; Z60.2 Problems related to living alone; Z88.0 Allergy status to penicillin; Z88.1 Allergy status to other antibiotic agents
CPT/HCPCS: A4606; A4663

== ENCOUNTER 2023-12-29 20:58 | Emergency (ER) | payer OTHER ==
[~2023-12-29] VITALS: Ht 152.4 cm; Wt 60.3 kg
[~2023-12-29 20:58] MED LIST changes: +AZIT250T PO
[2023-12-29 21:06] VITALS: O2SAT 100
== END 2023-12-29 21:56 | disposition left against medical advice (07) ==
LOC: ER 21:01
DX: R05.9 Cough, unspecified (principal)
CPT/HCPCS: A4606; A4663

== ENCOUNTER 2023-12-31 12:25 | Emergency (ER) | payer OTHER ==
[~2023-12-31] VITALS: Ht 152.4 cm; Wt 79.4 kg
[2023-12-31 13:09] LABS: CALCIUM 8.8 mg/dL (8.5-10.1); CREATININE 0.7 mg/dL (0.6-1.3)
[2023-12-31 13:11] LABS: BASOPHILS % (AUTO) 0.8 % (0.0-2.0); EOSINOPHILS # (AUTO) 0.1 K/uL (0.0-0.7); HEMATOCRIT 37.9 % (31.2-41.9); HEMOGLOBIN 13.3 g/dL (10.9-14.3); LYMPHOCYTES # (AUTO) 1.6 K/uL (0.8-4.8); LYMPHOCYTES % (AUTO) 40.2 % (20.5-51.5); MEAN CORPUSCULAR HEMOGLOBIN 32.2 uug (24.7-32.8); MEAN CORPUSCULAR HGB CONC 35 g/dL (32.3-35.6); MEAN CORPUSCULAR VOLUME 91.5 fL (75.5-95.3); MONOCYTES # (AUTO) 0.2 K/uL (0.1-1.30); MONOCYTES % (AUTO) 4.4 % (0.0-11.0); NEUTROPHILS # (AUTO) 2.1 K/uL (1.8-8.9); NEUTROPHILS % (AUTO) 52.6 % (38.5-71.5); PLATELET COUNT (AUTO) 180 K/uL (179-408); RED BLOOD CELL COUNT(AUTO) 4.14 MIL/uL (3.63-4.92); RED CELL DISTRIBUTION WIDTH 12.2 % (12.3-17.7); WHITE BLOOD COUNT (AUTO) 3.9 K/uL (3.8-11.8)
[2023-12-31 13:13] LABS: DIFFERENTIAL COMMENT 1
[2023-12-31 13:14] LABS: ALBUMIN 3.5 g/dL (3.4-5.0); BILIRUBIN,TOTAL 0.3 mg/dL (0.2-1.0); TOTAL PROTEIN, SERUM 7.2 g/dL (6.4-8.2)
[2023-12-31] MEDS ORDERED: LEVO500T90 PO (13:30)
[2023-12-31] MEDS ORDERED: BUDE10.2 INH (13:30)
[2023-12-31] MEDS ORDERED: BUDESONIDE 0.5 MG/2 ML NEBU ONE (13:35)
[2023-12-31] MEDS ORDERED: ALBUTEROL SULFATE 2.5 MG/3 ML NEBU ONE (13:35)
[2023-12-31 13:39] VITALS: O2SAT 99
[2023-12-31] MEDS: BUDESONIDE 0.5 MG/2 ML NEBU NEB ONE (13:39)
[2023-12-31] MEDS: ALBUTEROL SULFATE 2.5 MG/3 ML NEBU NEB ONE (13:39)
[2023-12-31 13:54] VITALS: O2SAT 99
[2023-12-31 13:55] VITALS: O2SAT 99
[2023-12-31] MEDS ORDERED: LORA0.5T48 PO (13:58)
[2023-12-31] MEDS: LORAZEPAM 0.5 MG TABLET PO ONE (14:01)
[2023-12-31] MEDS ORDERED: LORAZEPAM 1 MG TABLET ONE (14:01)
[2023-12-31 14:12] VITALS: BP 110/78; TEMP 98; O2SAT 99
== END 2023-12-31 14:15 | disposition home or self-care (01) ==
LOC: ER 12:25
DX: J20.8 Acute bronchitis due to other specified organisms (principal); J06.9 Acute upper respiratory infection, unspecified; J45.909 Unspecified asthma, uncomplicated; E03.9 Hypothyroidism, unspecified; F17.200 Nicotine dependence, unspecified, uncomplicated; Z98.890 Other specified postprocedural states; Z79.899 Other long term (current) drug therapy; Z60.2 Problems related to living alone; Z88.0 Allergy status to penicillin; Z88.1 Allergy status to other antibiotic agents
CPT/HCPCS: 36415; 71045; 85025; 94760; A4663

== ENCOUNTER 2024-01-11 22:15 | Emergency (ER) | payer OTHER ==
[~2024-01-11] VITALS: Ht 152.4 cm; Wt 59.0 kg
[~2024-01-11 22:15] MED LIST changes: +BUDE10.2 INH; +LEVO500T90 PO; +LORA0.5T48 PO
[2024-01-11 23:21] VITALS: BP 110/70; TEMP 98; O2SAT 99
== END 2024-01-11 23:22 | disposition home or self-care (01) ==
LOC: ER 22:23
DX: R51.9 Headache, unspecified (principal); R42 Dizziness and giddiness; J45.909 Unspecified asthma, uncomplicated; K21.9 Gastro-esophageal reflux disease without esophagitis; E03.9 Hypothyroidism, unspecified; F17.210 Nicotine dependence, cigarettes, uncomplicated
CPT/HCPCS: A4606; A4663

== ENCOUNTER 2024-01-25 21:39 | Emergency (ER) | payer OTHER ==
[~2024-01-25] VITALS: Ht 152.4 cm; Wt 61.2 kg
[2024-01-25] MEDS: LORAZEPAM 0.5 MG TABLET PO ONE (23:06)
[2024-01-25] MEDS ORDERED: LORA-258 PO (23:20)
[2024-01-25 23:40] VITALS: BP 124/71; O2SAT 97
== END 2024-01-25 23:37 | disposition home or self-care (01) ==
LOC: ER 21:41
DX: F19.239 Other psychoactive substance dependence with withdrawal, unspecified (principal); J45.909 Unspecified asthma, uncomplicated; F41.9 Anxiety disorder, unspecified; K21.9 Gastro-esophageal reflux disease without esophagitis; F32.A Depression, unspecified; F17.200 Nicotine dependence, unspecified, uncomplicated; E03.9 Hypothyroidism, unspecified; Z98.890 Other specified postprocedural states; Z79.899 Other long term (current) drug therapy; Z88.0 Allergy status to penicillin; Z88.1 Allergy status to other antibiotic agents
CPT/HCPCS: A4606; A4663

== ENCOUNTER 2024-02-05 04:05 | Emergency (ER) | payer OTHER ==
[~2024-02-05 04:05] MED LIST changes: +LORA-258 PO
== END 2024-02-05 05:15 | disposition left against medical advice (07) ==
LOC: ER 04:12
DX: N23 Unspecified renal colic (principal); Z53.21 Procedure and treatment not carried out due to patient leaving prior to being seen by health care provider

== ENCOUNTER 2024-04-23 16:49 | Emergency (ER) | payer OTHER ==
[~2024-04-23] VITALS: Ht 152.4 cm; Wt 70.3 kg
[2024-04-23] MEDS ORDERED: IBUPROFEN 200 MG TABLET ONE (17:59)
[2024-04-23] MEDS ORDERED: ACETAMINOPHEN 500 MG TABLET ONE (17:59)
[2024-04-23] MEDS: ACETAMINOPHEN 500 MG TABLET PO ONE (18:03)
[2024-04-23] MEDS: IBUPROFEN 200 MG TABLET PO ONE (18:03)
[2024-04-23] MEDS ORDERED: NEOMY/BACITRA/POLYMYXIN B OINT UD PACKET TP ONE (18:05)
[2024-04-23] MEDS ORDERED: TDAP DIPH,PERTUSS,TET VAC/PF 0.5 ML DISP.SYRIN IM ONE (18:15)
[2024-04-23] MEDS: NEOMY/BACITRA/POLYMYXIN B OINT UD PACKET TP ONE (18:16)
[2024-04-23] MEDS: TDAP DIPH,PERTUSS,TET VAC/PF 0.5 ML DISP.SYRIN IM ONE (18:36)
[2024-04-23 18:53] VITALS: BP 127/88; O2SAT 99
== END 2024-04-23 18:53 | disposition home or self-care (01) ==
LOC: ER 16:49
DX: S67.190A Crushing injury of right index finger, initial encounter (principal); K21.9 Gastro-esophageal reflux disease without esophagitis; J45.909 Unspecified asthma, uncomplicated; F32.A Depression, unspecified; F17.200 Nicotine dependence, unspecified, uncomplicated; E03.9 Hypothyroidism, unspecified; Z98.890 Other specified postprocedural states; Z79.51 Long term (current) use of inhaled steroids; Z88.0 Allergy status to penicillin; Z88.1 Allergy status to other antibiotic agents; W23.0XXA Caught, crushed, jammed, or pinched between moving objects, initial encounter; Y92.89 Other specified places as the place of occurrence of the external cause; Y99.8 Other external cause status
CPT/HCPCS: 73140; 90715; A4606; A4663; A9150

== ENCOUNTER 2024-04-25 18:24 | Emergency (ER) | payer OTHER ==
[~2024-04-25] VITALS: Ht 152.4 cm; Wt 70.3 kg
[2024-04-25] MEDS ORDERED: NEOMY/BACITRA/POLYMYXIN B OINT UD PACKET TP ONE ×2 (19:00→19:08)
[2024-04-25] MEDS ORDERED: BACITRACIN ZINC OINT 15 GM TUBE ONE (19:07)
[2024-04-25 19:54] VITALS: BP 111/71; TEMP 98; O2SAT 96
== END 2024-04-25 19:54 | disposition home or self-care (01) ==
LOC: ER 18:26
DX: S67.190A Crushing injury of right index finger, initial encounter (principal); K21.9 Gastro-esophageal reflux disease without esophagitis; F32.A Depression, unspecified; E03.9 Hypothyroidism, unspecified; F17.200 Nicotine dependence, unspecified, uncomplicated; Z79.51 Long term (current) use of inhaled steroids; Z88.0 Allergy status to penicillin; Z88.1 Allergy status to other antibiotic agents; W23.0XXA Caught, crushed, jammed, or pinched between moving objects, initial encounter; Y93.89 Activity, other specified; Y92.89 Other specified places as the place of occurrence of the external cause; Y99.8 Other external cause status
CPT/HCPCS: A4606; A4663

== ENCOUNTER 2024-07-07 21:51 | Emergency (ER) | payer OTHER ==
[~2024-07-07] VITALS: Ht 152.4 cm; Wt 72.6 kg
[2024-07-07 21:51] VITALS: O2SAT 96
[2024-07-07] MEDS: diphenhydrAMINE 50 MG/1 ML VIAL IV ONE (23:12)
[2024-07-07] MEDS ORDERED: methylPREDNISolone SOD SUCC 125 MG/2 ML VIAL ONE (23:16)
[2024-07-07] MEDS ORDERED: FAMOTIDINE. 20 MG/2 ML VIAL IV ONE (23:16)
[2024-07-07] MEDS: methylPREDNISolone SOD SUCC 125 MG/2 ML VIAL IV ONE (23:20)
[2024-07-07 23:21] LABS: BASOPHILS % (AUTO) 0.2 % (0.0-2.0); EOSINOPHILS # (AUTO) 0.1 K/uL (0.0-0.7); EOSINOPHILS % (AUTO) 1.1 % (0.0-7.0); HEMATOCRIT 36.8 % (31.2-41.9); HEMOGLOBIN 12.5 g/dL (10.9-14.3); LYMPHOCYTES # (AUTO) 1.8 K/uL (0.8-4.8); LYMPHOCYTES % (AUTO) 26.6 % (20.5-51.5); MEAN CORPUSCULAR HEMOGLOBIN 31.5 uug (24.7-32.8); MEAN CORPUSCULAR HGB CONC 34 g/dL (32.3-35.6); MONOCYTES # (AUTO) 0.3 K/uL (0.1-1.30); NEUTROPHILS # (AUTO) 4.6 K/uL (1.8-8.9); NEUTROPHILS % (AUTO) 67.1 % (38.5-71.5); PLATELET COUNT (AUTO) 200 K/uL (179-408); RED BLOOD CELL COUNT(AUTO) 3.95 MIL/uL (3.63-4.92); RED CELL DISTRIBUTION WIDTH 13.3 % (12.3-17.7); WHITE BLOOD COUNT (AUTO) 6.8 K/uL (3.8-11.8)
[2024-07-07] MEDS: FAMOTIDINE. 20 MG/2 ML VIAL IV ONE (23:21)
[2024-07-07 23:32] LABS: ETHANOL < 3 MG/DL (0-10)
[2024-07-07 23:33] LABS: ALANINE AMINOTRANSFERASE 22 U/L (14-59); ALBUMIN 3.6 g/dL (3.4-5.0); ALKALINE PHOSPHATASE 55 U/L (50-136); ASPARTATE AMINOTRANSFERASE 5 U/L (15-37); BILIRUBIN,TOTAL 0.3 mg/dL (0.2-1.0); CALCIUM 8.6 mg/dL (8.5-10.1); CARBON DIOXIDE 28 mmol/L (21-32); CHLORIDE 104 mmol/L (98-107); CREATININE 0.7 mg/dL (0.6-1.3); GLUCOSE 93 mg/dL (74-106); POTASSIUM 3.6 mmol/L (3.5-5.1); SODIUM SERUM 138 mmol/L (136-145); TOTAL PROTEIN, SERUM 7.8 g/dL (6.4-8.2); UREA NITROGEN, BLOOD 13 mg/dL (7-18)
== END 2024-07-08 01:05 | disposition left against medical advice (07) ==
LOC: ER 21:51
DX: L29.9 Pruritus, unspecified (principal); R06.02 Shortness of breath; T50.995A Adverse effect of other drugs, medicaments and biological substances, initial encounter; E03.9 Hypothyroidism, unspecified; J45.909 Unspecified asthma, uncomplicated; F17.200 Nicotine dependence, unspecified, uncomplicated; F32.A Depression, unspecified; K21.9 Gastro-esophageal reflux disease without esophagitis; Z79.51 Long term (current) use of inhaled steroids; Y92.89 Other specified places as the place of occurrence of the external cause; Z88.0 Allergy status to penicillin; Z88.1 Allergy status to other antibiotic agents
CPT/HCPCS: 36415; 85025; A4606; A4663; G0480; J2919; J3490

== ENCOUNTER 2024-09-30 23:20 | Emergency (ER) | payer OTHER ==
[~2024-09-30] VITALS: Ht 152.4 cm; Wt 78.9 kg
[~2024-09-30 23:20] MED LIST changes: +CYCL10TA9 PO
[2024-09-30] MEDS ORDERED: ASPIRIN 81 MG TAB.CHEW ONE (23:55)
[2024-09-30] MEDS: ASPIRIN 81 MG TAB.CHEW PO ONE (23:55)
[2024-10-01 00:10] LABS: BASOPHILS % (AUTO) 0.3 % (0.0-2.0); EOSINOPHILS # (AUTO) 0.1 K/uL (0.0-0.7); HEMATOCRIT 33.6 % (31.2-41.9); HEMOGLOBIN 11.6 g/dL (10.9-14.3); LYMPHOCYTES % (AUTO) 31.4 % (20.5-51.5); MEAN CORPUSCULAR HEMOGLOBIN 31.6 uug (24.7-32.8); MEAN CORPUSCULAR HGB CONC 35 g/dL (32.3-35.6); MEAN CORPUSCULAR VOLUME 91.1 fL (75.5-95.3); MONOCYTES # (AUTO) 0.4 K/uL (0.1-1.30); MONOCYTES % (AUTO) 5.4 % (0.0-11.0); NEUTROPHILS % (AUTO) 61.9 % (38.5-71.5); PLATELET COUNT (AUTO) 208 K/uL (179-408); RED BLOOD CELL COUNT(AUTO) 3.69 MIL/uL (3.63-4.92); RED CELL DISTRIBUTION WIDTH 12.7 % (12.3-17.7); WHITE BLOOD COUNT (AUTO) 6.5 K/uL (3.8-11.8)
[2024-10-01 00:11] LABS: DIFFERENTIAL COMMENT 1
[2024-10-01 00:20] LABS: CALCIUM 8.4 mg/dL (8.5-10.1); CARBON DIOXIDE 28 mmol/L (21-32); CHLORIDE 104 mmol/L (98-107); CREATININE 0.6 mg/dL (0.6-1.3); GLUCOSE 107 mg/dL (74-106); POTASSIUM 3.8 mmol/L (3.5-5.1); SODIUM SERUM 141 mmol/L (136-145); UREA NITROGEN, BLOOD 9 mg/dL (7-18)
[2024-10-01 00:36] LABS: ALANINE AMINOTRANSFERASE 18 U/L (14-59); ALBUMIN 3.2 g/dL (3.4-5.0); ALKALINE PHOSPHATASE 49 U/L (50-136); ASPARTATE AMINOTRANSFERASE 13 U/L (15-37); BILIRUBIN,DIRECT 0.1 mg/dL (0.0-0.2); BILIRUBIN,TOTAL 0.2 mg/dL (0.2-1.0); NT-PRO BNP 87 pg/mL (0-125)
[2024-10-01 02:54] VITALS: BP 104/67; TEMP 208; O2SAT 94
== END 2024-10-01 02:55 | disposition home or self-care (01) ==
LOC: ER 23:27
DX: R07.89 Other chest pain (principal); E03.9 Hypothyroidism, unspecified; F17.200 Nicotine dependence, unspecified, uncomplicated; F32.A Depression, unspecified; Z79.51 Long term (current) use of inhaled steroids; K21.9 Gastro-esophageal reflux disease without esophagitis; J45.909 Unspecified asthma, uncomplicated; Z60.2 Problems related to living alone; Z88.0 Allergy status to penicillin; Z88.1 Allergy status to other antibiotic agents
CPT/HCPCS: 36415; 71045; 84484; 85025; A4606; A4663